=== PATIENT | female | born 1965 | race Caucasian/White ===

== ENCOUNTER → 2016-12-01 | Outpatient (CLI) | payer OTHER ==
[2016-12-01 08:40] LABS: Non-African American GFR(MDRD) >60 (>60 ml/min/1.73 sqM)
--- NOTE | 2016-12-07 10:22 | MR ---
EXAMINATION TYPE: MR brain wo/w con DATE OF EXAM: 12/01/2016 COMPARISON: Prior brain MRI 08/22/2016 HISTORY: CVA, MS TECHNIQUE: Multiplanar, multisequence images of the brain and brainstem is performed without and with IV contras t, utilizing 11 mL intravenous MultiHance . FINDINGS: Diffusion weighted images demonstrate a stable appearance. There is no extra-axial fluid c ollection or significant interval change in white matter signal abnormality. Right frontal hyperinte nsity on inversion recovery and T2-weighted sequences is again seen, there is periventricular conflue nt and scattered hyperintensities on inversion recovery T2-weighted sequences similar to prior exam a lthough artifact on the prior exam is noted. The ventricular system and cisternal spaces are normal i n size and appearance. The brain volume is age appropriate. Midline structures demonstrate normal morphology. The craniocervical junction appears within normal limits. Post contrast images demonstrate no abnormal enhancement. The dural venous sinuses appear pa tent. The visualized sinuses are clear and the globes are intact. IMPRESSION: Nonspecific white matter demyelination, consider multiple sclerosis in the appropriate cl inical setting, findings are stable.
== END | disposition home or self-care (01) ==
LOC: RADMRIMAIN 07:42
PROVIDERS: ATTEND Psychiatry & Neurology Neurology
DX: Z13.89 Encounter for screening for other disorder (principal); R90.82 White matter disease, unspecified
CPT/HCPCS: 82565; 70553; A9577

== ENCOUNTER 2017-02-22 09:07 | Day surgery (SDC) | payer OTHER ==
[2017-02-21 09:05] VITALS: BMI 23.0
[~2017-02-22 09:07] MED LIST: LACTATED RINGERS 1,000 ML IV ONE
[2017-02-22 09:29] VITALS: TEMP 97.5
[2017-02-22] MEDS ORDERED: LIDOCAINE 1% 20 ML VIAL (10MG/ML) FOR IV START INTRADERMA ONE (09:29)
[2017-02-22] MEDS ORDERED: IV FLUID CONTINUATION 1,000 ML IV ONE (09:30)
[2017-02-22 11:49] VITALS: BP 120/83; PULSE 77; RESP 18
[2017-02-22 11:53] LABS: ALT 32 U/L (9-52); AST 21 U/L (14-36)
[2017-02-22 11:56] LABS: Rheumatoid Factor, Qnt <9 IU/mL (<12)
--- NOTE | 2017-02-22 11:56 | P.PCN ---
Date of Procedure: 02/22/17 Preoperative Diagnosis: Postoperative Diagnosis: Procedure(s) Performed: Preoperative diagnosis: Multiple sclerosis Post operative diagnoses: Multiple sclerosis Anesthesia local infiltration with lidocaine 1% 2 mL , and IV sedation with Versed 2 mg , and fentanyl 50 g. Condition: stable Complication: none. Description of the procedure procedure risk and benefits discussed with the patient and family, consent signed. Patient and the procedure area placed in lateral position back prepped with chlorhexidine 3 times been local infiltration of the skin and subcutaneous tissue with lidocaine 1% 2 mL for skin and subcu interstitial frustrations at L4 5 levels then 22-gauge Quincke- type needle advanced slowly at L4- 5 interlaminar space there was positive cerebrospinal fluid which was clear, no heme, no paresthesia ,total of 8 ML of clear cerebrospinal fluid collected in 4 different tubes 2 mL in each, then the needle removed and a Band-Aid applied and patient tolerated the procedure well without any complications. Implants: Indications for Procedure: Operative Findings: Description of Procedure:
[2017-02-22 12:41] LABS: Glucose,CSF 54 mg/dL (40-70)
[2017-02-22 13:30] LABS: Appearance,CSF Clear
[2017-02-22 19:21] LABS: Treponemal Ab Non-Reactive (Non-Reactive)
[2017-02-22 21:43] LABS: ANA w/Reflex to Titer POSITIVE (NEGATIVE); RNP AB Interpretation NEGATIVE (NEGATIVE)
[2017-02-23 10:47] LABS: Lyme IgG/IgM 0.1 Index; Lyme IgG/IgM Interp NEGATIVE (NEGATIVE)
[2017-02-23 12:50] LABS: IgG Synthesis Rate 5.25 mg/day (0.00 - 3.00)
[2017-02-25 14:50] LABS: Lyme Specimen Source Not Provided
== END 2017-02-22 12:03 | disposition home or self-care (01) ==
LOC: ORPAIN 09:07
DX: G35 Multiple sclerosis (principal)
CPT/HCPCS: 87476; 86592; 86235 ×3; 84439; 88108; 84157; 82945; 82040; 82042; 82784; 83916; 82164 ×2; 83873; 84443; 84450; 84460; 85730; 86431; 85613; 89050; 86618; 86780; 86038; 86039; 86225; 62270; 99152; J2250; J3010

== ENCOUNTER 2017-02-23 16:43 | Emergency (ER) | payer OTHER ==
[2017-02-23 16:55] VITALS: TEMP 98.2
[2017-02-23] MEDS ORDERED: METOCLOPRAMIDE 5 MG/ML 2 ML VIAL IVP STA (17:04)
[2017-02-23] MEDS ORDERED: SODIUM CHLORIDE 0.9% 1,000 ML IV ONE (17:04)
[2017-02-23] MEDS ORDERED: diphenhydrAMINE 50 MG/ML 1 ML VIAL IVP STA (17:04)
[2017-02-23] MEDS ORDERED: KETOROLAC 30 MG/ML 1 ML VIAL IVP STA (17:04)
[2017-02-23] MEDS ORDERED: CAFFEINE-SODIUM BENZOATE 500 MG in SODIUM CHLORIDE 0.9% 1,000 ML IVPB ONE (17:13)
--- NOTE | 2017-02-23 17:13 | ED ---
Headache HPI - General Chief Complaint: Headache Stated Complaint: spinal headache Time Seen by Provider: 02/23/17 16:59 Mode of arrival: ambulatory Limitations: no limitations - History of Present Illness Initial Comments: 51-year-old female patient presents to emergency department today with a chief complaint of headache. Patient states that about an hour after waking this morning she developed a mild headache, she states that throughout the day the headache has worsened in intensity and is now severe. Patient states the pain is a pounding type pain in the frontal area and in her neck. Patient states she has been nauseated with this however has not vomited. Patient denies any photosensitivity, sensitivity to sound, blurred or double vision. Denies any dizziness, weakness, numbness, or tingling anywhere. Patient states that she did have a spinal tap done yesterday at the pain center here. Patient states that they are testing her for MS due to abnormal MRI results. Patient states she is also having some mild pain to her lower back where they performed the spinal tap. Patient denies any recent fever, chills, shortness breath, chest pain, abdominal pain, nausea, vomiting, diarrhea, constipation, numbness, tingling, weakness, or any difficulty with urination or bowel movements. - Related Data Home Medications Medication Instructions Recorded Confirmed Lansoprazole [Prevacid] 30 mg PO DAILY PRN 10/13/15 02/23/17 amLODIPine [Norvasc] 5 mg PO DAILY 02/21/17 02/23/17 Levothyroxine Sodium [Synthroid] 50 mcg PO DAILY 02/23/17 02/23/17 Allergies Allergy/AdvReac Type Severity Reaction Status Date / Time No Known Allergies Allergy Verified 02/23/17 17:26 Review of Systems ROS Statement: Those systems with pertinent positive or pertinent negative responses have been documented in the HPI. ROS Other: All systems not noted in ROS Statement are negative. Past Medical History Past Medical History: Asthma, GERD/Reflux, Hypertension, Thyroid Disorder Additional Past Medical History / Comment(s): Currently having intermittent symptoms of N/T neck, feet, hands, fatigue, has memory "issues", blurred spot rt eye, Hypothyroid disorder and thyroid nodule. Recently diagnosed with Colitis. History of Any Multi-Drug Resistant Organisms: None Reported Additional Past Surgical History / Comment(s): "Tummy tuck"., shoulder surg Past Anesthesia/Blood Transfusion Reactions: No Reported Reaction Past Psychological History: No Psychological Hx Reported Smoking Status: Former smoker Past Alcohol Use History: Occasional Past Drug Use History: None Reported - Past Family History Mother Family Medical History: Hypertension, Thyroid Disorder Additional Family Medical History / Comment(s): Hypothyroid disorder. Father Family Medical History: Cancer Additional Family Medical History / Comment(s): "Heart problems". Brain cancer. Brother(s) Family Medical History: Hypertension Additional Family Medical History / Comment(s): heart issues General Exam Limitations: no limitations General appearance: alert, in no apparent distress Head exam: Present: atraumatic, normocephalic, normal inspection Eye exam: Present: normal appearance, PERRL, EOMI. Absent: scleral icterus, conjunctival injection, periorbital swelling ENT exam: Present: normal exam, normal oropharynx, mucous membranes moist. Absent: TM's normal bilaterally (Cerumen impaction bilaterally, unable to visualize TMs) Neck exam: Present: normal inspection, full ROM. Absent: tenderness, meningismus, lymphadenopathy Respiratory exam: Present: normal lung sounds bilaterally. Absent: respiratory distress, wheezes, rales, rhonchi, stridor Cardiovascular Exam: Present: regular rate, normal rhythm, normal heart sounds. Absent: systolic murmur, diastolic murmur, rubs, gallop, clicks GI/Abdominal exam: Present: soft, normal bowel sounds. Absent: distended, tenderness, guarding, rebound, rigid Back exam: Present: normal inspection. Absent: tenderness, vertebral tenderness Neurological exam: Present: alert, oriented X3, CN II-XII intact Psychiatric exam: Present: normal affect, normal mood Skin exam: Present: warm, dry, intact, normal color. Absent: rash Course Vital Signs 02/23/17 02/23/17 16:53 20:07 Temperature 98.2 F Pulse Rate 83 78 Respiratory 18 20 Rate Blood Pressure 163/91 145/78 O2 Sat by Pulse 100 97 Oximetry - Reevaluation(s) Reevaluation #1: 02/23/17 18:21 Went into check on patient. The patient states that her headache is much improved while she is lying down however when she sits up it comes back and is still severe. Patient still needs to complete the caffeine infusion. We'll give an additional dose of pain medication and reevaluate the patient once those are complete. Medical Decision Making - Medical Decision Making 51-year-old female patient presented to emergency department today for complaints of headache after having a spinal tap yesterday. Patient was given IV pain medication as well as fluids here in the emergency department. Patient states that her headache was much improved after the medications. Patient states she does still have some pain when she sits up, states longer that she is upright the headache becomes worse. Did offer to have anesthesia come in to do blood patch over patient would like to be discharged home at this time to see how she feels tomorrow. Patient neurological status intact throughout visit. Patient instructed to follow-up with her primary care physician for recheck in 1-2 days. Instructed to increase fluids as well as caffeine products. Instructed to return here immediately for any new, worsening, or concerning symptoms. Patient verbalized understanding and agreed with this plan. Disposition Clinical Impression: Spinal headache Disposition: HOME SELF-CARE Condition: Good Instructions: Acute Headache (ED) Additional Instructions: Increase fluids. Increase caffeine intake. Follow-up with her primary care physician for recheck in 1-2 days. Return here immediately for any new, worsening, or concerning symptoms. Referrals: Betito Coffey MD [Primary Care Provider] - 1-2 days Time of Disposition: 19:31
[2017-02-23] MEDS ORDERED: HYDROmorphone 1 MG/ML 1 ML SYRINGE IVP STA (18:21)
[2017-02-23] MEDS ORDERED: methylPREDNISolone SOD SUCCI 125 MG/2 ML VIAL IV STA (19:30)
[2017-02-23 20:08] VITALS: BP 145/78; PULSE 78; RESP 20
== END 2017-02-23 20:08 | disposition home or self-care (01) ==
LOC: EC 16:43
DX: G97.1 Other reaction to spinal and lumbar puncture (principal); H61.23 Impacted cerumen, bilateral; M54.2 Cervicalgia; M54.5 Low back pain; I10 Essential (primary) hypertension; E03.9 Hypothyroidism, unspecified; Z87.891 Personal history of nicotine dependence; Z79.899 Other long term (current) drug therapy
CPT/HCPCS: 99283; 96365; 96375 ×4; J1200; J2765; J1885; J1170

== ENCOUNTER → 2017-03-12 | Outpatient (CLI) | payer OTHER ==
[~2017-03-12] MED LIST changes: -LACTATED RINGERS 1,000 ML IV ONE; +SODIUM CHLORIDE 0.9% 500 ML in EMPTY BAG 1 BAG IV PRN
[2017-03-12 11:02] VITALS: BP 156/88; PULSE 76; RESP 16; TEMP 98
== END ==
LOC: PROCWHC3 10:49
PROVIDERS: ATTEND Psychiatry & Neurology Neurology
DX: G35 Multiple sclerosis (principal)
CPT/HCPCS: 96365; J2930

== ENCOUNTER → 2017-05-10 | Outpatient (CLI) | payer OTHER ==
--- NOTE | 2017-05-10 11:51 | MR ---
EXAMINATION TYPE: MR lumbar spine wo con DATE OF EXAM: 05/10/2017 11:00 AM COMPARISON: NONE HISTORY: Low back pain Multiplanar, MultiSpin echo imaging of the lumbar spine was performed. L1-L2: Normal disc appearance without desiccation. No herniation, protrusion or disc bulging. No ca nal stenosis is present. Foramina are patent bilaterally. L2-L3: Normal disc appearance without desiccation. No herniation, protrusion or disc bulging. No ca nal stenosis is present. Foramina are patent bilaterally. L3-L4: Normal disc appearance without desiccation. No herniation, protrusion or disc bulging. No ca nal stenosis is present. Foramina are patent bilaterally. L4-L5: Normal disc appearance without desiccation. No herniation, protrusion or disc bulging. No ca nal stenosis is present. Foramina are patent bilaterally. L5-S1: Moderate decreased signal and loss of height compatible with degenerative disc disease. Facility Planner ior disc bulge with greater right paracentral component felt to reflect broad-based disc protrusion. Mild effacement ventral thecal sac. No evidence for central stenosis or lateral recess stenosis. Mild right foraminal encroachment. Lumbar segments are intact. No paraspinal masses are identified. Conus medullaris has a normal appe arance. IMPRESSION: 1. Right paracentral disc protrusion at L5-S1. Mild right foraminal encroachment at this level.
== END | disposition home or self-care (01) ==
LOC: RADMRIMAIN 10:27
PROVIDERS: ATTEND Psychiatry & Neurology Pain Medicine
DX: M51.27 Other intervertebral disc displacement, lumbosacral region (principal)
CPT/HCPCS: 72148

== ENCOUNTER → 2017-11-22 | Outpatient (CLI) | payer OTHER ==
[2017-11-22 11:22] LABS: Blood Urea Nitrogen 11 mg/dL (7-17)
--- NOTE | 2017-11-23 15:54 | MR ---
EXAMINATION TYPE: MR brain/cspine wo/w DATE OF EXAM: 11/22/2017 COMPARISON: MRI brain dated 12/01/2016 HISTORY: MS BRAIN: TECHNIQUE: Multiplanar, multisequence images of the brain, brain stem and cervical spine is performed without an d with utilizing 6.5 mL intravenous Gadavist gadolinium contrast. Demyelinating disease protocol wit h additional Sagittal Flair sequence performed. FINDINGS: T2 Lesions Present : Yes Approximate Number of Lesions: Difficult to number as lesions are confluent in the pericallosal and p eriventricular white matter extending into subcortical right matter of the right frontal lobe. Locations Identified : Pericallosal and periventricular Enhancing Lesion(s) Present: No Change from Prior: Stable Diffusion weighted images demonstrate no evidence of a recent infarct or other diffusion abnormality. There is no worrisome extra-axial fluid collection. The ventricular system and cisternal spaces ar e normal in size and appearance. The brain volume is age appropriate. Midline structures demonstrate normal morphology. The craniocervical junction appears within normal limits. Post contrast images demonstrate no abnormal enhancement. The dural venous sinuses appear pa tent. The visualized sinuses demonstrate mild mucosal thickening of the maxillary and sphenoid sinus es. The globes are intact. Incidentally there is diffuse hypointensity of the calvarium and visualize d cervical spine. Correlation for anemia is recommended. Diffuse metastatic disease is considered muc h less likely. CERVICAL SPINE: Evaluation of the cervical spine is limited due to patient motion. The MR technologis t notes that the patient fell asleep while scanning. Incidentally the right thyroid gland is enlarged and heterogenous. Thyroid ultrasound is recommended for further evaluation. C1-C2: Normal disc appearance without desiccation. No herniation, protrusion or disc bulging. No ca nal stenosis is present. Foramina are patent bilaterally. C2-C3: Slight disc desiccation. No focal herniation or neuroforaminal narrowing. No spinal canal sten osis. C3-C4: Disc desiccation without neural foraminal narrowing. Small posterior disc osteophyte complex i s seen creating mild spinal canal stenosis. C4-C5: There is a small left paracentral disc osteophyte complex and uncovertebral hypertrophy mildly narrowing the spinal canal and left neural foramen. Right neuroforamen is patent. C5-C6: There is a small central disc herniation with mass effect upon the ventral subarachnoid space creating mild spinal canal stenosis. Uncovertebral hypertrophy is and facet arthropathy are also seen minimally narrowing the bilateral neural foramen. C6-C7: Small posterior disc osteophyte complex is seen without significant spinal canal stenosis or n eural foraminal narrowing. No abnormal enhancement of the cervical spine cord to suggest active demyelinating plaque. IMPRESSION: 1. Confluent pericallosal and periventricular white matter change extending into the subcortical righ t frontal lobe similar in degree to the prior exam with no enhancement. Again multiple sclerosis is a consideration and in keeping with the patient's history. Right frontal subcortical hyperintensity is slightly atypical for multiple sclerosis although stable. 2. No abnormal intracranial enhancement. No evidence of acute hemorrhage or infarct. 3. Small central disc herniation at C5-C6 creating mild spinal canal stenosis and minimal bilateral n eural foraminal narrowing. 4. Slight limitation due to motion artifact throughout the cervical spine although no abnormal enhanc ement is seen to suggest active demyelinating cervical spine plaques. 5. Mild multilevel degenerative disc disease resulting in variable degrees of neural foraminal narrow ing as described above. 3. Incidentally noted enlargement of the right thyroid gland for which thyroid ultrasound is recommen ded.
== END | disposition home or self-care (01) ==
LOC: RADMRIMAIN 10:44
PROVIDERS: ATTEND Psychiatry & Neurology Neurology
DX: M48.02 Spinal stenosis, cervical region (principal); M99.71 Connective tissue and disc stenosis of intervertebral foramina of cervical region; M50.222 Other cervical disc displacement at C5-C6 level; M50.30 Other cervical disc degeneration, unspecified cervical region; R90.89 Other abnormal findings on diagnostic imaging of central nervous system; G35 Multiple sclerosis
CPT/HCPCS: 82565; 84520; 70553; 72156; A9581

== ENCOUNTER → 2018-10-18 | Outpatient (CLI) | payer BC ==
--- NOTE | 2018-10-19 16:38 | MR ---
EXAMINATION TYPE: MR cervical spine wo/w con DATE OF EXAM: 10/18/2018 COMPARISON: None HISTORY: Headache, dizziness, memory loss, MS TECHNIQUE: Multiplanar, multisequence images of the cervical spine were acquired utilizing 6 mL intravenous Gada vist gadolinium contrast. Diffusion weighted imaging was performed. Cervical vertebra have normal alignment. Disc spaces are fairly normal. There is small posterior disc herniation at C4-5 and C6-7. There is developmentally adequate spinal canal. Canal measures 9 mm at the narrowest point. Brainstem is intact. Cervical spinal cord has normal signal pattern. There is no edema. There is very slight deformity of the cervical cord at C6-7 due to the posterior disc herniat ion. There is no pathologic enhancement. There is no cervical paraspinal mass. There is asymmetric enlarge ment of the right thyroid lobe. This measures 3 cm. Cerebellum is intact. IMPRESSION: Posterior disc herniations as above. No significant narrowing of the spinal canal. No evidence of demyelinating disease in the cervical spinal cord. Asymmetric enlargement of the right thyroid gland. Ultrasound would be helpful to detect a mass.
== END ==
LOC: RADMRIMAIN 19:37
PROVIDERS: ATTEND Nurse Practitioner Adult Health
DX: M50.221 Other cervical disc displacement at C4-C5 level (principal); G35 Multiple sclerosis
CPT/HCPCS: 72156; A9585

== ENCOUNTER → 2018-10-30 | Outpatient (CLI) | payer BC ==
--- NOTE | 2018-10-30 14:47 | MR ---
MRI BRAIN WITH CONTRAST CLINICAL HISTORY: Multiple sclerosis TECHNIQUE: Multiplanar, multisequence imaging of the brain and brainstem is performed without and wit h IV contrast, 6 cc of Gadavist is administered intravenously. Demyelinating disease protocol with a dditional Sagittal Flair sequence performed. Comparison: 11/22/2017 FINDINGS: T2 Lesions Present : Yes Approximate Number of Lesions: Difficult to number as lesions are confluent in the pericallosal and p eriventricular white matter extending into subcortical right matter of the right frontal lobe. Locations Identified : Pericallosal, periventricular and juxtacortical white frontal region. Size of Largest Lesion(s): Largest confluent lesion is within the high right frontal lobe measuring 2.0 x 1.6 cm stable from amy or study. Enhancing Lesion(s) Present: None Change from Prior: Stable Diffusion weighted images demonstrate no evidence of a recent infarct or other diffusion abnormality. There is no worrisome extra-axial fluid collection. The ventricular system and cisternal spaces ar e normal in size and appearance. The brain volume is age appropriate. Midline structures demonstrate normal morphology. The craniocervical junction appears within normal limits. Post contrast images demonstrate no abnormal enhancement. The dural venous sinuses appear pa tent. The visualized sinuses are clear and the globes are intact. IMPRESSION: 1. Stable left pericallosal and periventricular white matter lesions with juxtacortical right frontal lobe lesion unchanged from prior study. Correlate with the provided history of multiple sclerosis.
== END ==
LOC: RADMRIMAIN 13:24
PROVIDERS: ATTEND Family Medicine
DX: G35 Multiple sclerosis (principal)
CPT/HCPCS: 70553; A9585

== ENCOUNTER 2020-03-27 17:06 | Emergency (ER) | payer MEDICARE ==
[2020-03-27 17:13] VITALS: TEMP 98.1
[2020-03-27] MEDS ORDERED: MORPHINE SULFATE 4 MG/ML SYRINGE IV STA (17:30)
[2020-03-27] MEDS ORDERED: diphenhydrAMINE 50 MG/ML 1 ML VIAL IVP STA (17:30)
[2020-03-27] MEDS ORDERED: SODIUM CHLORIDE 0.9% 1,000 ML IV STA (17:30)
[2020-03-27] MEDS ORDERED: ONDANSETRON 4 MG/2 ML VIAL IVP STA (17:30)
[2020-03-27] MEDS ORDERED: DEXAMETHASONE SOD PHOSPHATE 10 MG/ML 1 ML VIAL IV STA (17:30)
--- NOTE | 2020-03-27 17:33 | ED ---
General Adult HPI - General Chief complaint: Neuro Symptoms/Deficit Stated complaint: MS issues Time Seen by Provider: 03/27/20 17:17 Source: patient Mode of arrival: ambulatory Limitations: no limitations - History of Present Illness Initial comments: Dictation was produced using [employer] dictation software. please excuse any grammatical, word or spelling errors. This patient was cared for during a federal and state declared state of emergency secondary to Covid 19 Chief Complaint: 54-year-old female with 3 years history of multiple sclerosis presents with headache, episodes of confusion and episodes of facial tingling History of Present Illness: Patient is 54-year-old female she has past medical history of multiple sclerosis. She has had MS for approximately 3 years. When she was initially diagnosed she was having frequent treatments. She since then has not been compliant with recommended treatments because of cost of m edications. Over the last week patient has been having waxing and waning episodes of confusion, facial tingling. Today she decided come to the emergency department because she had acute onset headache that is sharp in nature that started approximately 1-2 hours prior to arrival. Patient also reports strange vision changes. She describes vision changes as everything seemingly artificial. however at bedside has noted that she has been having word finding difficulties. The ROS documented in this emergency department record has been reviewed and confirmed by me. Those systems with pertinent positive or negative responses have been documented in the HPI. All other systems are other negative and/or noncontributory. PHYSICAL EXAM: General Impression: Alert and oriented x3, not in acute distress HEENT: Normocephalic atraumatic, extra-ocular movements intact, pupils equal and reactive to light bilaterally, mucous membranes moist. Cardiovascular: Heart regular rate and rhythm Chest: Able to complete full sentences, no retractions, no tachypnea Abdomen: abdomen soft, non-tender, non-distended, no organomegaly Musculoskeletal: Pulses present and equal in all extremities, no peripheral edema Motor: no focal deficits noted Neurological: CN II-XII grossly intact, no focal motor or sensory deficits noted, non-gait ataxic, not aphasic, no facial asymmetry, no sensory deficits noted to the face arms or legs Skin: Intact with no visualized rashes Psych: Normal affect and mood ED course: 54-year-old female presents with clinical presentation concerning for multiple sclerosis flare. Vital signs upon arrival are within acceptable limits. Chart review was performed. Patient most recently had brain MRI in October of last year showing stable MS findings. Computed tomography scan of the brain is unremarkable. Laboratory evaluation shows microcytosis. Metabolic panel is negative. Patient reevaluated at bedside in stable medical condition. We do not have neurology coverage at our hospital over the weekend. Disposition options were discussed with patient. Patient requests to be discharge. She has an MRI appointment on Sunday. She is strongly urged to follow up with her primary care physician for outpatient management of multiple sclerosis. She states she is not satisfied with her current neurologist. She is advised to ask for referral for a different neuro logist. Patient given 10 mg of IV Decadron. Return parameters discussed. Patient is understandable. - Related Data Home Medications Medication Instructions Recorded Confirmed Lansoprazole [Prevacid] 30 mg PO DAILY PRN 10/13/15 03/12/17 amLODIPine [Norvasc] 5 mg PO DAILY 02/21/17 03/12/17 Levothyroxine Sodium [Synthroid] 50 mcg PO DAILY 02/23/17 03/12/17 Allergies Allergy/AdvReac Type Severity Reaction Status Date / Time No Known Allergies Allergy Verified 03/27/20 17:13 Review of Systems ROS Statement: Those systems with pertinent positive or pertinent negative responses have been documented in the HPI. ROS Other: All systems not noted in ROS Statement are negative. Past Medical History Past Medical History: Asthma, GERD/Reflux, Hypertension, Thyroid Disorder Additional Past Medical History / Comment(s): Currently having intermittent symptoms of N/T neck, feet, hands, fatigue, has memory "issues", blurred spot rt eye, Hypothyroid disorder and thyroid nodule. Recently diagnosed with Colitis. History of Any Multi-Drug Resistant Organisms: None Reported Additional Past Surgical History / Comment(s): "Tummy tuck"., shoulder surg Past Anesthesia/Blood Transfusion Reactions: No Reported Reaction Past Psychological History: No Psychological Hx Reported Smoking Status: Never smoker Past Alcohol Use History: Occasional Past Drug Use History: None Reported - Past Family History Mother Family Medical History: Hypertension, Thyroid Disorder Additional Family Medical History / Comment(s): Hypothyroid disorder. Father Family Medical History: Cancer Additional Family Medical History / Comment(s): "Heart problems". Brain cancer. Brother(s) Family Medical History: Hypertension Additional Family Medical History / Comment(s): heart issues General Exam Limitations: no limitations Course Vital Signs 03/27/20 03/27/20 17:08 18:27 Temperature 98.1 F Pulse Rate 75 77 Respiratory 20 16 Rate Blood Pressure 179/100 184/101 O2 Sat by Pulse 99 100 Oximetry Medical Decision Making - Lab Data Result diagrams: 03/27/20 17:33 03/27/20 17:33 Lab Results 03/27/20 03/27/20 Range/Units 17:33 17:33 WBC 6.1 (3.8-10.6) k/uL RBC 5.31 (3.80-5.40) m/uL Hgb 13.1 (11.4-16.0) gm/dL Hct 41.6 (34.0-46.0) % MCV 78.3 L (80.0-100.0) fL MCH 24.7 L (25.0-35.0) pg MCHC 31.6 (31.0-37.0) g/dL RDW 14.8 (11.5-15.5) % Plt Count 310 (150-450) k/uL Neutrophils % 56 % Lymphocytes % 29 % Monocytes % 5 % Eosinophils % 7 % Basophils % 1 % Neutrophils # 3.4 (1.3-7.7) k/uL Lymphocytes # 1.7 (1.0-4.8) k/uL Monocytes # 0.3 (0-1.0) k/uL Eosinophils # 0.4 (0-0.7) k/uL Basophils # 0.1 (0-0.2) k/uL Sodium 138 (137-145) mmol/L Potassium 4.5 (3.5-5.1) mmol/L Chloride 106 (98-107) mmol/L Carbon Dioxide 22 (22-30) mmol/L Anion Gap 10 mmol/L BUN 19 H (7-17) mg/dL Creatinine 0.74 (0.52-1.04) mg/dL Est GFR (CKD-EPI)AfAm >90 (>60 ml/min/1.73 sqM) Est GFR (CKD-EPI)NonAf >90 (>60 ml/min/1.73 sqM) Glucose 95 (74-99) mg/dL Calcium 10.2 (8.4-10.2) mg/dL Disposition Clinical Impression: Headache Disposition: HOME SELF-CARE Condition: Fair Instructions (If sedation given, give patient instructions): Multiple Sclerosis (DC) Additional Instructions: Please follow up with her primary care physician for outpatient management of multiple sclerosis. Return to emergency Department with any worsening symptoms. Is patient prescribed a controlled substance at d/c from ED?: No Referrals: Nonstaff,Physician [Primary Care Provider] - 1-2 days Time of Disposition: 18:38
[2020-03-27 17:47] LABS: Basophils # (A) 0.1 k/uL (0-0.2); Basophils % (A) 1 %; Eosinophils # (A) 0.4 k/uL (0-0.7); Eosinophils % (A) 7 %; HCT 41.6 % (34.0-46.0); HGB 13.1 gm/dL (11.4-16.0); Lymphocytes # (A) 1.7 k/uL (1.0-4.8); Lymphocytes % (A) 29 %; MCH 24.7 pg (25.0-35.0); MCHC 31.6 g/dL (31.0-37.0); MCV 78.3 fL (80.0-100.0); Monocytes # (A) 0.3 k/uL (0-1.0); Monocytes % (A) 5 %; Neutrophils # (A) 3.4 k/uL (1.3-7.7); Neutrophils % (A) 56 %; Platelet Count 310 k/uL (150-450); RBC 5.31 m/uL (3.80-5.40); RDW 14.8 % (11.5-15.5); WBC 6.1 k/uL (3.8-10.6)
[2020-03-27 17:54] LABS: African American GFR (CKD) >90 (>60 ml/min/1.73 sqM); Anion Gap 10 mmol/L; Blood Urea Nitrogen 19 mg/dL (7-17); Calcium 10.2 mg/dL (8.4-10.2); Carbon Dioxide 22 mmol/L (22-30); Chloride 106 mmol/L (98-107); Glucose 95 mg/dL (74-99); Non-African American GFR(CKD) >90 (>60 ml/min/1.73 sqM); Potassium 4.5 mmol/L (3.5-5.1); Sodium 138 mmol/L (137-145)
[2020-03-27 18:28] VITALS: RESP 16
--- NOTE | 2020-03-27 18:28 | CT ---
EXAMINATION TYPE: CT brain wo con DATE OF EXAM: 03/27/2020 COMPARISON: None HISTORY: Headache x 2 hours with left sided numbness. CT DLP: 1103.4 mGycm Automated exposure control for dose reduction was used. Ventricles have normal size. There is no mass effect nor midline shift. There is no sign of intracran ial hemorrhage. The calvarium is intact. There is no evidence of cerebral edema. IMPRESSION: Negative unenhanced head CT scan.
[2020-03-27] MEDS ORDERED: ACET/COD 300 MG/30 MG STARTER PACK 6 TAB BTL PO STA (18:39)
[2020-03-27 18:55] VITALS: BP 164/95; PULSE 86
== END 2020-03-27 19:03 | disposition home or self-care (01) ==
LOC: EC 17:06
DX: R51.9 Headache, unspecified (principal); R41.0 Disorientation, unspecified; R20.2 Paresthesia of skin; K21.9 Gastro-esophageal reflux disease without esophagitis; I10 Essential (primary) hypertension; E03.9 Hypothyroidism, unspecified; Z79.890 Hormone replacement therapy; Z79.899 Other long term (current) drug therapy; Z91.14 Patient's other noncompliance with medication regimen
CPT/HCPCS: 99284 ×2; 96374 ×2; 96375 ×4; 96361 ×2; 36415; 80048; 85025; 70450; J2270; J1200; J1100; J2405

== ENCOUNTER → 2020-03-30 | Outpatient (CLI) | payer MEDICARE ==
--- NOTE | 2020-03-30 08:36 | CT ---
EXAMINATION TYPE: CT sinus wo con DATE OF EXAM: 03/30/2020 COMPARISON: None HISTORY: Chronic sinusitis CT DLP: 567 mGycm CONTRAST: 0 mL of Isovue 300 The paranasal sinuses are examined in the axial plane at 2 mm thick sections. Reconstructed images i n the coronal plane were obtained. There is dental amalgam scatter artifact Small retention cysts are within the inferior left maxillary sinus and posterior inferior right maxil maría sinus. Scattered mucosal thickening is through ethmoid air cells. The sphenoid sinuses are leena ar. The frontal sinuses are clear. The septum is evaluated. There is septal deviation to the right. The ostiomeatal units are obstructed bilaterally Bilateral kellee bullosa are present. IMPRESSIONS: 1. Bilateral ostiomeatal unit obstruction. 2. Small amount of mucosal thickening within maxillary and ethmoid air cells.
== END | disposition home or self-care (01) ==
LOC: RADCTMAIN 07:43
PROVIDERS: ATTEND Otolaryngology
DX: J34.89 Other specified disorders of nose and nasal sinuses (principal)
CPT/HCPCS: 70486

== ENCOUNTER → 2020-03-30 | Outpatient (CLI) | payer MEDICARE ==
--- NOTE | 2020-03-30 12:12 | MR ---
EXAMINATION TYPE: MR brain wo/w con DATE OF EXAM: 03/30/2020 COMPARISON: Prior MRI brain October 2018 and December 11, 2016. HISTORY: Multiple sclerosis. TECHNIQUE: Multiplanar, multisequence images of the brain and brainstem is performed without and with IV contras t, utilizing 7 mL intravenous Gadavist gadolinium contrast is administered intravenously. Demyelinat ing disease protocol with additional Sagittal Flair sequence performed. FINDINGS: T2 Lesions Present : Yes Approximate Number of Lesions: Difficult to accurately measure due to vague confluent appearance. Locations Identified : As above Size of Reference Lesion(s): 1. Vague subcortical high right frontal lesion measuring 2.3 x 2.1 x 1.8 cm axial image 25 and sagitt al image 27, no significant change from prior studies Enhancing Lesion(s) Present: No Change from Prior: Stable Diffusion weighted images demonstrate no evidence of a recent infarct or other diffusion abnormality. There is no worrisome extra-axial fluid collection. The ventricular system and cisternal spaces ar e normal in size and appearance. The brain volume is age appropriate. Midline structures demonstrate normal morphology. The craniocervical junction appears within normal limits. Post contrast images demonstrate no abnormal enhancement. The dural venous sinuses appear pa tent. Recurrent posterior right sphenoid sinus disease axial image 10 with mild to moderate mucosal t hickening anteriorly bilaterally on current study. Globes are intact bilaterally. Tiny mucous retenti on cyst or polyp posterior inferior right maxillary sinus redemonstrated stable axial image 6. IMPRESSION: Mild nonspecific white matter changes redemonstrated. No new or enhancing lesions. Recurr ent acute on chronic ethmoid sinus disease otherwise no significant interval change from prior MRI st udies.
== END | disposition home or self-care (01) ==
LOC: RADMRIMAIN 07:35
PROVIDERS: ATTEND Nurse Practitioner Adult Health
DX: R90.89 Other abnormal findings on diagnostic imaging of central nervous system (principal); G35 Multiple sclerosis
CPT/HCPCS: 70553; A9585

== ENCOUNTER 2020-08-18 08:19 | Day surgery (SDC) | payer MEDICARE ==
[2020-08-17 08:48] VITALS: BMI 24.7
[~2020-08-18 08:19] MED LIST changes: +DEXAMETHASONE SOD PHOSPHATE 4 MG/ML 1 ML VIAL IV ONE; +DEXAMETHASONE SOD PHOSPHATE 4 MG/ML 1 ML VIAL IV PRN; +FAMOTIDINE 20 MG/2 ML VIAL IV PRN; +HYDROmorphone 0.5 MG/0.5 ML SYRINGE IVP PRN; +LACTATED RINGERS 1,000 ML IV SCH; +LIDOCAINE 1% (10MG/ML) FOR IV START INTRADERMA PRN; +ONDANSETRON 4 MG/2 ML VIAL IVP ONE; +ONDANSETRON 4 MG/2 ML VIAL IVP PRN; -SODIUM CHLORIDE 0.9% 500 ML in EMPTY BAG 1 BAG IV PRN
[2020-08-18] MEDS: OXYMETAZOLINE 0.05% NASL SPRAY 1 SPRAY BOTTLE EA NOSTRIL PRN ×5 (08:43→09:03)
[2020-08-18] MEDS ORDERED: fentaNYL (PF) 50 MCG/ML 2 ML AMP ONE (09:44)
[2020-08-18] MEDS ORDERED: ceFAZolin 1,000 MG VIAL ONE (09:44)
[2020-08-18] MEDS ORDERED: PROPOFOL 10 MG/ML 20 ML VIAL IV ONE (09:44)
[2020-08-18] MEDS ORDERED: PHENYLEPHRINE-0.9% NACL SYG 1,000 MCG/10 ML SYRINGE ONE (09:44)
[2020-08-18] MEDS ORDERED: MIDAZOLAM 2 MG/2 ML VIAL ONE (09:44)
[2020-08-18] MEDS ORDERED: SUCCINYLCHOLINE CHLORIDE 100 MG/5 ML SYR IV ONE (09:44)
[2020-08-18] MEDS ORDERED: LIDOCAINE 1% INJ 10MG/ML (20 ML MDV) ONE (09:44)
[2020-08-18] MEDS ORDERED: LIDOCAINE 1%/EPI 1:200,000 MPF 10 ML VIAL SUBMUCOSAL ONE ×2 (09:58)
[2020-08-18] MEDS ORDERED: BACITRACIN ZINC 500 UNIT/GM OINT 28.4 GM TUBE TOPICAL ONE (10:42)
--- NOTE | 2020-08-18 10:50 | P.OP ---
Date of Procedure: 08/18/20 Preoperative Diagnosis: Deviated nasal septum Inferior turbinate hypertrophy Chronic sinusitis Sinonasal polyposis Postoperative Diagnosis: Same Procedure(s) Performed: Septoplasty Outfracture and submucous resection of the inferior turbinates Bilateral endoscopic sinus surgery including bilateral maxillary antrostomy with removal of tissue from the maxillary sinuses bilateral anterior and posterior ethmoidectomy, bilateral kellee bullectomy, with polypectomies Anesthesia: JESSE Surgeon: Juan A Kaur Estimated Blood Loss (ml): 10 Pathology: other (Nasal septal nasal polyps sinus contents) Condition: stable Disposition: PACU Indications for Procedure: Is a 54-year-old white female with difficulties with chronic nasal congestion and nasal airway obstruction and chronic sinusitis with physical exam and CT evidence of deviated septum inferior turbinate hypertrophy sinonasal polyps and chronic sinusitis Operative Findings: Deviated to the right inferior turbinate hypertrophy and sinonasal polyps with bilateral kellee bullosa cells the polyps are throughout the ethmoid sinuses and within the middle meatus bilaterally as well as in the maxillary sinuses Description of Procedure: The patient was brought into the operative suite and placed in a supine position. The patient underwent induction of general anesthesia with oral endotracheal intubation without difficulty. The patient was prepped and draped in the usual aseptic fashion with the orbits in the operating field for monitoring to the case and the computed tomography scan was on the computer screen for review throughout the case. 1% lidocaine with 1 :100,000 epinephrine was infused submucosally into both sides of the nasal septum as well as the lateral nasal wall and anterior tips of the middle turbinates. While this was taking vasoconstrictive effect the inferior turbinates were infractured with [place] elevator and partial submucous resection of the inferior turbinates was performed with a portion of the submucosal soft tissue and the inferior turbinate bone removed with Coblation device. The inferior turbinates were then outfractured with the [place] elevator. A left hemitransfixion incision was then made with the mucoperichondrial and muc operiosteal flap on the left elevated. The bony cartilaginous junction was disarticulated and the mucoperiosteal flap on the right was elevated. Bony nasal septal deformities were removed with Emelyn forceps and an inferior cartilaginous strip was removed leaving a full 1.5 cm caudal strut. Checking intranasally this corrected the nasoseptal deformities and the hemitransfixion incision was closed with a running 4-0 chromic suture. Full 0 endoscopic examination is performed bilaterally. Beginning on the left, the middle turbinate was medialized. There was a large kellee bullosa cell and this was removed removing the lateral half of the middle turbinate with the microdebrider thus performing the kellee bullectomy. There were polyps emanating from the middle turbinate which were debrided with microdebrider and also in the middle meatus. Were debrided with microdebrider. The maxillary ostium was located with a ballpoint probe and an infundibulotomy was performed followed by uncinectomy. The maxillary antrostomy was enlarged at the expense of the anterior and posterior fontanelle taking care anteriorly not to injure the lacrimal bone. The maxillary sinus was evaluated with 30 and 70 endoscope .[Abnormal appearing tissue was removed from the maxillary sinus-this appeared to be consistent with polyps grossly]. Anterior and posterior ethmoidectomy were then performed from anterior to posterior to the level of the skull base. The roof of the anterior ethmoid air cells were then cleaned from posterior to anterior using up-biting Blakesley forceps. The anterior posterior ethmoid sinuses had polyps throughout and these were cleaned also with the microdebrider. Attention was then turned to the right where the procedures were followed as they had been on the left including the kellee bullectomy with debridement of polyps from the middle turbinate, debridement of polyps from the middle meatus with microdebrider, maxillary antrostomy with removal of tissue from the maxillary sinus, infundibulotomy uncinectomy anterior posterior ethmoidectomy with polypectomy. [Nasopore nasal dressing was placed in the middle meatus bilaterally under direct visualization]. Bilateral Bermudez airway splints coated with bacitracin ointment were placed and sutured transseptally with a 4-0 nylon suture. The patient was suctioned in oral gastric fashion and was allowed to emerge from general anesthesia having tolerated procedure well and was extubated in the operating suite and transferred to the postoperative recovery area in satisfactory condition.
[2020-08-18 11:20] VITALS: TEMP 96.9
[2020-08-18 11:21] VITALS: RESP 16
[2020-08-18] MEDS ORDERED: LABETALOL SYRINGE 5 MG/ML IVP ONE (11:26)
[2020-08-18] MEDS ORDERED: hydrALAZINE HCL 20 MG/ML 1 ML VIAL ONE (12:18)
[2020-08-18] MEDS ORDERED: hydrALAZINE HCL 20 MG/ML 1 ML VIAL IV ONE (12:20)
[2020-08-18] MEDS ORDERED: HYDROcodone/APAP 5-325MG 1 EACH TAB ONE (12:30)
[2020-08-18] MEDS ORDERED: HYDROcodone/APAP 5-325MG 1 EACH TAB PO ONE (12:30)
[2020-08-18] MEDS ORDERED: fentaNYL (PF) 50 MCG/ML 2 ML AMP IV ONE (13:40)
[2020-08-18 14:25] VITALS: PULSE 85
[2020-08-18 14:26] VITALS: BP 125/81
== END 2020-08-18 14:41 | disposition home or self-care (01) ==
LOC: OR 08:19
PROVIDERS: ATTEND Otolaryngology
DX: J34.2 Deviated nasal septum (principal); J34.3 Hypertrophy of nasal turbinates; J32.9 Chronic sinusitis, unspecified; J33.8 Other polyp of sinus; I10 Essential (primary) hypertension; J45.909 Unspecified asthma, uncomplicated; K21.9 Gastro-esophageal reflux disease without esophagitis; Z79.899 Other long term (current) drug therapy
CPT/HCPCS: 81025; 88305; 88300; 30520; 31240; 30802; 31267; 31255; J2250; J0360; J1100; J2405; J0690; J2001; J3010; J2370; J0330; J2704

== ENCOUNTER → 2020-10-27 | Outpatient (CLI) | payer MEDICARE ==
--- NOTE | 2020-10-27 13:07 | CONS ---
CONSULTATION DATE OF SERVICE: 10/27/2020 This 54-year-old lady has been evaluated in the sleep center for possible obstructive sleep apnea-hypopnea syndrome and excessive daytime sleepiness. HISTORY OF PRESENT ILLNESS/SLEEP-WAKE EVALUATION: Patient has history of obstructive sleep apnea diagnosed about 15 years ago. At that time, she was started on treatment with CPAP, but was not able to use equipment, stopped treatment. Presently, her sleep schedule from 6 p.m. to 6:30 a.m. Sometimes she has problems with falling asleep. She has TV set in bedroom. She usually sleeps on the side position. She snores. She snores loudly, has witnessed episodes of stopped breathing during sleep. She wakes up from sleep 5 times with nocturia, dry mouth, panic attacks, heartburn, gasping for air, and sweating. Positive history of restless leg symptoms. No history of hypnagogic hallucinations, sleep paralysis or cataplexy. Sometimes she takes naps. [place] Sleepiness Scale significantly increased to 13. PAST MEDICAL HISTORY: Positive for hypertension, multiple sclerosis, asthma, sinus problems, headaches, acid reflux, anemia. PAST SURGICAL HISTORY: Sinus surgery, surgery for rotator cuff. MEDICATIONS: Omeprazole, albuterol on p.r.n. basis. Presently, patient does not take any medications for the blood pressure. SOCIAL HISTORY: Positive history of smoking, quit 15 years ago. Alcohol consumption none. FAMILY HISTORY: Heart problems, cancer, liver problems. REVIEW OF SYSTEMS: No fevers. No double vision. No recent chest pain. No shortness of breath. No abdominal pain. No bleeding episodes. No blood in the urine. No seizure episodes. PHYSICAL EXAMINATION: GENERAL: lady without distress. VITAL SIGNS: BP 183/101, HR 92, RR 15, height 5 feet, 2 inches, weight 146.4, temperature is 97.7, oxygen saturation at room air 97%. HEENT: PERRLA, EOMI. Oropharynx small oropharyngeal air space, Mallampati 2-3. Wide pillars and tonsils. NECK: 14-1/2 inches in circumference. LUNGS: Clear to percussion and to auscultation. Good air exchange. No wheezing or rhonchi. HEART: S1, S2 regular. No murmurs, gallops, or rubs. ABDOMEN: Soft and nontender. Bowel sounds are present. No organomegaly appreciated. EXTREMITIES: No clubbing or cyanosis. OCCUP THER: Awake, alert, and oriented X3. Cranial nerves 2 to 7 intact. There is no fasciculation or atrophy. noted. No focal deficits observed. IMPRESSION: 1. Loud snoring, history of obstructive sleep apnea in the past, multiple awakenings from sleep with nocturia, dry mouth and gasping for air, excessive daytime sleepiness. [place] Sleepiness Scale increased to 13. Small oropharyngeal air space, obstructive sleep apnea-hypopnea syndrome. 2. Hypertension. 3. History of multiple sclerosis? 4. Asthma. 5. Sinusitis, status post sinus surgery. 6. Headaches. 7. Acid reflux. 8. History of anemia. 9. Restless leg symptoms. 10.Status post rotator cuff surgery. PLAN: 1. Polysomnography for evaluation of patient's breathing during sleep. 2. CPAP/BiPAP titration if sleep study confirms obstructive sleep apnea-hypopnea syndrome. 3. Preferable position during sleep on the side. 4. No driving if patient feels any sleepiness. 5. I will see patient for follow up visit to explain results of testing and following plan. 6. Low sodium diet. 7. I extensively discussed with the patient negative effect on the body not treated hypertension. She recently does not take any medications for the blood pressure. 8. Monitoring of blood pressure. Thank you very much for referring this patient for consultation. Sincerely, Jcarlos Barron MD, PhD, FAASM Diplomat of [employer] [employer] [place] [employer] [facility] [place] MMODL / IJN: [id number] /
== END ==
LOC: SLEEP 11:13
PROVIDERS: ATTEND Internal Medicine
DX: G47.33 Obstructive sleep apnea (adult) (pediatric) (principal); I10 Essential (primary) hypertension; J45.909 Unspecified asthma, uncomplicated; J32.9 Chronic sinusitis, unspecified; K21.9 Gastro-esophageal reflux disease without esophagitis; G25.81 Restless legs syndrome; R51.9 Headache, unspecified; D64.9 Anemia, unspecified; Z87.891 Personal history of nicotine dependence; Z98.890 Other specified postprocedural states
CPT/HCPCS: 99211

== ENCOUNTER 2020-12-07 08:00 | Day surgery (SDC) | payer MEDICARE ==
[2020-12-03 14:43] VITALS: BMI 25.0
[~2020-12-07 08:00] MED LIST changes: -DEXAMETHASONE SOD PHOSPHATE 4 MG/ML 1 ML VIAL IV PRN; -FAMOTIDINE 20 MG/2 ML VIAL IV PRN; -HYDROmorphone 0.5 MG/0.5 ML SYRINGE IVP PRN; -ONDANSETRON 4 MG/2 ML VIAL IVP PRN; +Pre Op ABX Message 1 EACH MISC MISCELLANE ONE; +fentaNYL (PF) 50 MCG/ML 2 ML AMP IV PRN
[2020-12-07] MEDS ORDERED: MIDAZOLAM 2 MG/2 ML VIAL IVP ONE (09:05)
[2020-12-07] MEDS ORDERED: fentaNYL (PF) 50 MCG/ML 2 ML AMP IVP ONE (09:05)
[2020-12-07] MEDS ORDERED: MIDAZOLAM 2 MG/2 ML VIAL ONE (09:31)
[2020-12-07] MEDS ORDERED: PROPOFOL 10 MG/ML 20 ML VIAL IV ONE (09:31)
[2020-12-07] MEDS ORDERED: fentaNYL (PF) 50 MCG/ML 2 ML AMP ONE (09:31)
[2020-12-07] MEDS ORDERED: PHENYLEPHRINE-0.9% NACL SYG 1,000 MCG/10 ML SYRINGE ONE (09:31)
[2020-12-07] MEDS ORDERED: NALOXONE 0.4 MG/ML 1 ML VIAL ONE (09:31)
[2020-12-07] MEDS ORDERED: KETOROLAC 15 MG/ML 1 ML VIAL ONE (09:31)
[2020-12-07] MEDS ORDERED: LIDOCAINE 1% INJ 10MG/ML (20 ML MDV) ONE (09:31)
[2020-12-07] MEDS ORDERED: SILVER NITRATE APPLICATOR 1 EACH STICK..EA. TOPICAL ONE (09:49)
--- NOTE | 2020-12-07 10:04 | P.OP ---
Date of Procedure: 12/07/20 Preoperative Diagnosis: Endometrial polyp noted sonographically, fibroid uterus, ovarian cyst. Postoperative Diagnosis: Grade 2-3 cystocele, grade 2 uterine prolapse. Procedure(s) Performed: Hysteroscopy, D&C, polypectomy Anesthesia: JESSE Surgeon: Yazmin Koo Estimated Blood Loss (ml): 2 IV fluids (ml): 300 Urine output (ml): 100 Pathology: other (Endometrial curettings and polyps) Condition: stable Disposition: PACU Operative Findings: A large endometrial polyp, with 1-2 smaller polyps noted. Otherwise negative cavity. Grade 2-3 cystocele, grade 2 uterine prolapse, uterus approximately 12 weeks size and bulky, consistent with known fibroids. Description of Procedure: Patient is brought to the operating suite where a general anesthetic is administered. She's placed in the dorsal lithotomy position. The cervix, vagina, perineal bodies are all prepped and draped in usual sterile fashion. The appropriate timeout is performed to assure proper patient and procedural identification. Bladder is drained for approximately 100 mL of clear yellow urine. Examination under anesthesia reveals a cystocele, grade 2 uterine prolapse, 12 week size bulky fibroid uterus. No examination evidence of ovarian cyst. Weighted speculum was placed into the vagina. Anterior lip of the cervix is grasped with a double-tooth tenaculum. Uterus sounds to a depth of 10 cm in the anteverted position. Cervix was systematically dilated using Hanks dilators. Hysteroscope was introduced and there is a predominant polyp noted at 12:00, with 1-2 smaller polyps. Ostia are negative. No intra-uterine fibroids are appreciated. Hysteroscope was removed. A medium sharp curette is used and the large polyp is brought forth and sent to pathology. The cavity is then thoroughly and systematically curettaged with the same medium sharp curette. Hysteroscope was once again introduced and the cavity appears clean and dry. There is a grade 2 uterine prolapse noted along with a grade 2-3 cystocele. All instrumentation is removed from the vagina. Cervix is clean and dry. All sponge needle and enhancement counts are correct. Patient is brought back to recovery room in very good condition with stable vital signs including blood pressure 84/64, pulse 70, respirations 14, 100% O2 saturation. Toradol is given prior to leaving the operative room. She will follow-up with me in the office in 2 weeks.
[2020-12-07 10:20] VITALS: TEMP 97.1
[2020-12-07 10:28] VITALS: RESP 16
[2020-12-07] MEDS ORDERED: HYDROmorphone 0.5 MG/0.5 ML SYRINGE IVP ONE (10:40)
[2020-12-07 11:33] VITALS: BP 136/82; PULSE 84
== END 2020-12-07 12:00 | disposition home or self-care (01) ==
LOC: OR 08:00
PROVIDERS: ATTEND Obstetrics & Gynecology
DX: N84.0 Polyp of corpus uteri (principal); D25.9 Leiomyoma of uterus, unspecified; N81.2 Incomplete uterovaginal prolapse; I10 Essential (primary) hypertension; E07.9 Disorder of thyroid, unspecified; D64.9 Anemia, unspecified; Z79.899 Other long term (current) drug therapy; Z87.891 Personal history of nicotine dependence
CPT/HCPCS: 81025; 88305; 58558; J2250; J1100; J2310; J2405; J2001; J3010; J1885; J2370; J2704; J1170

== ENCOUNTER 2020-12-08 14:49 | Emergency (ER) | payer MEDICARE ==
[2020-12-08 15:08] VITALS: BP 174/100; PULSE 78; RESP 20; TEMP 98.4
--- NOTE | 2020-12-08 15:58 | ED ---
General Adult HPI - General Chief complaint: Eye Problems Stated complaint: Hx MS, Eye Problems Time Seen by Provider: 12/08/20 15:32 Source: patient, RN notes reviewed, old records reviewed Mode of arrival: ambulatory Limitations: no limitations - History of Present Illness Initial comments: 54-year-old female history of MS presenting with flashing and floating visual disturbance of the left eye. This has been present for the past 3 days. She was seen by her seafood harvester yesterday had a evaluation and was referred to a retinal specialist. According to the patient he did not notice any abnormality in the retina but given the symptoms he wanted her evaluated. She states they have persisted and now she is having some blurry vision in the right eye. No injury. No focal numbness or weakness. - Related Data Home Medications Medication Instructions Recorded Confirmed Lansoprazole [Prevacid] 30 mg PO DAILY PRN 10/13/15 12/07/20 Albuterol Sulfate [Ventolin HFA] 1 - 2 puff INHALATION Q6H PRN 08/17/20 12/07/20 Allergies Allergy/AdvReac Type Severity Reaction Status Date / Time No Known Allergies Allergy Verified 12/08/20 15:08 Review of Systems ROS Statement: Those systems with pertinent positive or pertinent negative responses have been documented in the HPI. ROS Other: All systems not noted in ROS Statement are negative. Past Medical History Past Medical History: Asthma, GERD/Reflux, Hypertension, Thyroid Disorder Additional Past Medical History / Comment(s): dx. MS 3 years ago-fatigue, "heavy" legs, Hypothyroid disorder and thyroid nodule, no longer needs thyroid med, supposed to take BP med but stopped on her own History of Any Multi-Drug Resistant Organisms: None Reported Past Surgical History: Orthopedic Surgery Additional Past Surgical History / Comment(s): "Tummy tuck".,left shoulder surg D&C Past Anesthesia/Blood Transfusion Reactions: No Reported Reaction Past Psychological History: No Psychological Hx Reported Smoking Status: Former smoker Past Alcohol Use History: None Reported Past Drug Use History: None Reported - Past Family History Mother Family Medical History: Hypertension, Thyroid Disorder Additional Family Medical History / Comment(s): Hypothyroid disorder. Father Family Medical History: Cancer Additional Family Medical History / Comment(s): "Heart problems". Brain cancer. Brother(s) Family Medical History: Hypertension Additional Family Medical History / Comment(s): heart issues General Exam Limitations: no limitations General appearance: alert, in no apparent distress Head exam: Present: atraumatic, normocephalic Eye exam: Present: normal appearance, PERRL, EOMI, other (No visual field deficit in either eye.). Absent: periorbital swelling, periorbital tenderness ENT exam: Present: normal exam Neck exam: Present: normal inspection. Absent: tenderness, meningismus Respiratory exam: Present: normal lung sounds bilaterally. Absent: respiratory distress, wheezes Cardiovascular Exam: Present: regular rate, normal rhythm GI/Abdominal exam: Present: soft. Absent: distended, tenderness, guarding Extremities exam: Present: normal inspection, normal capillary refill. Absent: pedal edema, calf tenderness Neurological exam: Present: alert, oriented X3, CN II-XII intact, normal gait. Absent: motor sensory deficit Psychiatric exam: Present: normal affect, normal mood Skin exam: Present: warm, dry, intact. Absent: cyanosis, diaphoretic Course Vital Signs 12/08/20 15:03 Temperature 98.4 F Pulse Rate 78 Respiratory 20 Rate Blood Pressure 174/100 O2 Sat by Pulse 95 Oximetry Medical Decision Making - Medical Decision Making Intraocular pressure in the left eye 17 white Jason-Pen. Right eye receive multiple air messages unable to be tested. There is no gross visual field deficit to be concerned with large retinal detachment. I did discuss case with Dr. Ivonne galeas for ophthalmology who has arranged for urgent evaluation at his office with retinal specialist. Patient discharged urgently from the emergency department to make appointment at production floater office. Disposition Clinical Impression: Visual floaters Narrative: Concern for vitreous hemorrhage or vitreous detachment Disposition: HOME SELF-CARE Condition: Good Instructions (If sedation given, give patient instructions): Visual Floaters (ED) Is patient prescribed a controlled substance at d/c from ED?: No Referrals: Manish Nugent MD [Primary Care Provider] - 1-2 days Dolores Coronado MD [STAFF PHYSICIAN] - 1-2 days Time of Disposition: 16:05
== END 2020-12-08 16:07 | disposition home or self-care (01) ==
LOC: EC 14:49
DX: H43.399 Other vitreous opacities, unspecified eye (principal); I10 Essential (primary) hypertension; J45.909 Unspecified asthma, uncomplicated; E03.9 Hypothyroidism, unspecified; K21.9 Gastro-esophageal reflux disease without esophagitis; Z87.891 Personal history of nicotine dependence; Z79.51 Long term (current) use of inhaled steroids
CPT/HCPCS: 99283

== ENCOUNTER 2020-12-22 22:22 | Emergency (ER) | payer MEDICARE ==
[2020-12-22 22:45] VITALS: RESP 20
[2020-12-23] MEDS ORDERED: LIDOCAINE 1% INJ 10MG/ML (20 ML MDV) SQ ONE (00:22)
[2020-12-23] MEDS ORDERED: SULFAMETH-TMP DS STARTER PACK 2 TAB BTL PO STA (00:22)
[2020-12-23] MEDS ORDERED: ACET/COD 300 MG/30 MG STARTER PACK 6 TAB BTL PO STA (00:22)
[2020-12-23] MEDS ORDERED: KETOROLAC 15 MG/ML 1 ML VIAL IM STA (00:22)
--- NOTE | 2020-12-23 01:05 | ED ---
Skin/Abscess/FB HPI - General Chief complaint: Skin/Abscess/Foreign Body Stated complaint: abscess Time Seen by Provider: 12/22/20 23:28 Source: patient Mode of arrival: ambulatory Limitations: no limitations - History of Present Illness Initial comments: 54 year-old female patient presents for evaluation of "boil" to the left buttock. Patient states it started about a week ago and has been increasing in size and becoming more painful. States she did have some drainage from the area today. Denies any fever or chills. Denies any history of similar lesion. Denies history of diabetes or IV drug use. Patient denies any recent rash, cough, shortness of breath, chest pain, abdominal pain, nausea, vomiting, diarrhea, constipation, back pain, numbness, tingling, dizziness, weakness, hematuria, dysuria, urinary urgency, urinary frequency, headache, visual changes, or any other complaints. - Related Data Home Medications Medication Instructions Recorded Confirmed Lansoprazole [Prevacid] 30 mg PO DAILY PRN 10/13/15 12/07/20 Albuterol Sulfate [Ventolin HFA] 1 - 2 puff INHALATION Q6H PRN 08/17/20 12/07/20 Previous Rx's Medication Instructions Recorded Ibuprofen [Motrin] 600 mg PO Q8HR PRN #30 tab 12/23/20 Sulfamethoxazole/Trimethoprim 1 each PO BID #20 tablet 12/23/20 [Bactrim DS 800-160 mg] Allergies Allergy/AdvReac Type Severity Reaction Status Date / Time No Known Allergies Allergy Verified 12/22/20 22:44 Review of Systems ROS Statement: Those systems with pertinent positive or pertinent negative responses have been documented in the HPI. ROS Other: All systems not noted in ROS Statement are negative. Past Medical History Past Medical History: Asthma, GERD/Reflux, Hypertension, Thyroid Disorder Additional Past Medical History / Comment(s): dx. MS 3 years ago-fatigue, "heavy" legs, Hypothyroid disorder and thyroid nodule, no longer needs thyroid med, supposed to take BP med but stopped on her own History of Any Multi-Drug Resistant Organisms: None Reported Past Surgical History: Orthopedic Surgery Additional Past Surgical History / Comment(s): "Tummy tuck".,left shoulder surg D&C Past Anesthesia/Blood Transfusion Reactions: No Reported Reaction Past Psychological History: No Psychological Hx Reported Smoking Status: Former smoker Past Alcohol Use History: None Reported Past Drug Use History: None Reported - Past Family History Mother Family Medical History: Hypertension, Thyroid Disorder Additional Family Medical History / Comment(s): Hypothyroid disorder. Father Family Medical History: Cancer Additional Family Medical History / Comment(s): "Heart problems". Brain cancer. Brother(s) Family Medical History: Hypertension Additional Family Medical History / Comment(s): heart issues General Exam Limitations: no limitations General appearance: alert, in no apparent distress, other (This is a well- developed, well-nourished adult female patient in no acute distress. Vital signs upon presentation temperature 98.5F, pulse 102, respirations 20, blood pressure 154/91, pulse ox 98% on room air.) Respiratory exam: Present: normal lung sounds bilaterally. Absent: respiratory distress, wheezes, rales, rhonchi, stridor Cardiovascular Exam: Present: regular rate, normal rhythm, normal heart sounds. Absent: systolic murmur, diastolic murmur, rubs, gallop, clicks Neurological exam: Present: alert, oriented X3, CN II-XII intact Psychiatric exam: Present: normal affect, normal mood Skin exam: Present: warm, dry, intact, normal color. Absent: rash Expanded Type of lesion: Present: abscess (There is 4 cm x 4 cm abscess noted to the left buttock, there is central ice induration, small pustules noted. There is mild surrounding erythema. No perianal tenderness.) Course Vital Signs 12/22/20 12/23/20 22:44 01:30 Temperature 98.5 F 98.1 F Pulse Rate 102 H 69 Respiratory 20 20 Rate Blood Pressure 154/91 123/65 O2 Sat by Pulse 98 99 Oximetry Procedures - [place] Protocol (Time Out) Procedure Performed:: i&D of lt buttock Performing Provider: Sue He Nurse: Jaz Quiros Patient Identification (2 identifiers required): Chart, Verbal, Arm Band, Name, Birthdate Patient/Legal Animal Eviscerator has Confirmed: Identity, Site, Procedure, Consent Site: buttock Site Marked: Yes Site Verified With Patient/Guardian: Yes - Incision & Drainage Consent Obtained: written consent Indication: Abscess Site: buttock (Left) Size (cm): 4 Anesthetic Used: lidocaine 1% Amount (mLs): 3 I&D Cleaning Method: Betadine Scalpel Used: #11 Irrigation Performed?: Yes I&D Drainage Obtained: Pus, Blood Culture Obtained?: Yes Patient Tolerated Procedure: well, no complications Medical Decision Making - Medical Decision Making 54-year-old female patient presents to the emergency department today for evaluation of abscess to the left buttock. Physical examination did reveal 4 cm abscess with induration surrounding erythema. Did perform incision and drainage and did have output of blood and pus. Culture was obtained. She was started on antibiotics. She'll be discharged with instructions to do warm sitz baths or warm compresses 4-5 times daily. She is instructed to follow-up with her primary care physician for recheck in 1-2 days. Return parameters were discus sed in detail. She verbalizes understanding and agrees with this plan. My attending is Dr. Scott. Disposition Clinical Impression: Left buttock abscess Disposition: HOME SELF-CARE Condition: Good Instructions (If sedation given, give patient instructions): Abscess Incision and Drainage (ED), Abscess (ED) Additional Instructions: Complete antibiotic in full. Apply warm compresses or take warm baths at least 4-5 times per day. Take tylenol and motrin for pain control, Tylenol #3 sparingly for severe pain. Follow-up with your primary care physician for recheck in 1-2 days. Return to the emergency department for any new, worsening, or concerning symptoms. Prescriptions: Sulfamethoxazole/Trimethoprim [Bactrim DS 800-160 mg] 1 each PO BID #20 tablet Ibuprofen [Motrin] 600 mg PO Q8HR PRN #30 tab PRN Reason: Pain Is patient prescribed a controlled substance at d/c from ED?: No Referrals: Manish Nugent MD [Primary Care Provider] - 1-2 days Time of Disposition: 01:05
[2020-12-23 01:40] VITALS: BP 123/65; PULSE 69; TEMP 98.1
== END 2020-12-23 01:30 | disposition home or self-care (01) ==
LOC: EC 22:22
DX: L02.31 Cutaneous abscess of buttock (principal); J45.909 Unspecified asthma, uncomplicated; I10 Essential (primary) hypertension; E03.9 Hypothyroidism, unspecified; K21.9 Gastro-esophageal reflux disease without esophagitis; Z87.891 Personal history of nicotine dependence; Z79.51 Long term (current) use of inhaled steroids
CPT/HCPCS: 87070; 87205; 99282; 96372; 10060; J2001; J1885

== ENCOUNTER → 2021-10-20 | Outpatient (CLI) | payer MEDICARE ==
[2021-10-28 03:23] LABS: ANA Pattern Speckled
== END | disposition home or self-care (01) ==
LOC: LABWHC1 12:31
PROVIDERS: ATTEND Psychiatry & Neurology Neurology
DX: Z00.00 Encounter for general adult medical examination without abnormal findings (principal); R20.2 Paresthesia of skin; E56.9 Vitamin deficiency, unspecified; M79.10 Myalgia, unspecified site; G35 Multiple sclerosis
CPT/HCPCS: 36415; 82306; 82550; 82607; 85652; 86038; 86039; 86618

== ENCOUNTER → 2021-10-29 | Outpatient (CLI) | payer MEDICARE ==
--- NOTE | 2021-10-29 09:08 | MR ---
EXAMINATION TYPE: MR brain wo/w con DATE OF EXAM: 10/29/2021 COMPARISON: 03/30/2020 HISTORY: MS follow up, generalized pain and weakness TECHNIQUE: Multiplanar, multisequence images of the brain and brainstem is performed without and with IV contras t, utilizing 7 mL intravenous Gadavist . On the T1-weighted sagittal images, the midline structures including the craniovertebral junction rel ationships are normal. The ventricles, basal cisterns and sulci over the convexities are within normal limits and there is n o mass, mass effect or shift of the midline structures. There is a focal area of ill-defined abnormal signal intensity in the posterior right frontal white m atter which is seen previously and has decreased mildly in the interval focal area of demyelination. There is also mild diffuse abnormal signal intensity deep periventricular white matter of both cerebr al hemispheres which is essentially unchanged. No new lesions are seen. There are no areas of pathological enhancement or diffusion weighted restric tion. The posterior fossa including the brainstem, fourth ventricle and cerebellar pontine angles appear no rmal. The intraorbital contents appear normal and symmetric. There is mild chronic inflammatory change in t he right maxillary sinus which was seen previously and is stable. The mastoid air cells are well aera oxana IMPRESSION: Stable or slightly improved white matter changes as described above. No new lesions are seen and no e vidence of acute inflammation based on the lack of IV contrast enhancement or diffusion weighted rest riction.
== END | disposition home or self-care (01) ==
LOC: RADMRIMAIN 08:13
PROVIDERS: ATTEND Psychiatry & Neurology Neurology
DX: G35 Multiple sclerosis (principal); R52 Pain, unspecified; R53.1 Weakness
CPT/HCPCS: 70553; A9585

== ENCOUNTER → 2022-03-22 | Outpatient (CLI) | payer MEDICARE ==
[2022-03-22 18:03] LABS: HGB 14.7 g/dL (12.0-15.0); MCH 27.9 pg (27.0-32.0); MCHC 32.7 g/dL (32.0-37.0); MCV 85.6 fL (80.0-97.0); Mean Platelet Volume 11.7 fL (9.5-12.2); NRBC Per 100 WBC 0 /100 WBCS (0.0-0.0); Platelet Count 304 X 10*3/uL (140-440); RBC 5.26 X 10*6/uL (4.10-5.20); RDW 13.3 % (11.5-14.5); WBC 5.71 X 10*3/uL (4.50-10.00)
[2022-03-22 18:17] LABS: Anion Gap 11.4 mmol/L (10.00-18.00); Carbon Dioxide 23.5 mmol/L (20.0-27.5); Potassium 4.2 mmol/L (3.5-5.5)
== END | disposition home or self-care (01) ==
LOC: LABWHC1 10:42
PROVIDERS: ATTEND Plastic Surgery
DX: Z01.812 Encounter for preprocedural laboratory examination (principal)
CPT/HCPCS: 36415; 80051; 85027